=== PATIENT | male | born 2000 | race Caucasian/White ===

== ENCOUNTER 2019-11-11 21:21 | Emergency (ER) | payer MEDICAID ==
[~2019-11-11] VITALS: Ht 175.3 cm; Wt 83.3 kg
[2019-11-11 21:35] VITALS: BP 114/69
== END 2019-11-11 23:29 | disposition home or self-care (01) ==
LOC: ED 23:15
DX: S62.346A Nondisplaced fracture of base of fifth metacarpal bone, right hand, initial encounter for closed fracture (principal); S60.221A Contusion of right hand, initial encounter; X58.XXXA Exposure to other specified factors, initial encounter; Y93.89 Activity, other specified; Y92.009 Unspecified place in unspecified non-institutional (private) residence as the place of occurrence of the external cause; Y99.8 Other external cause status
CPT/HCPCS: 29125; 99283

== ENCOUNTER 2020-12-03 00:29 | Emergency (ER) | payer MEDICAID ==
[~2020-12-03] VITALS: Ht 177.8 cm; Wt 84.6 kg
[2020-12-03 00:36] VITALS: BP 111/62
== END 2020-12-03 01:53 | disposition home or self-care (01) ==
LOC: ED 00:59
DX: U07.1 COVID-19 (principal); J00 Acute nasopharyngitis [common cold]
CPT/HCPCS: 99283; U0003; U0005